=== PATIENT | male | born 1970 | race Caucasian/White ===

== ENCOUNTER 2016-11-15 05:45 | Day surgery (SDC) | payer OTHER ==
[2016-11-15] MEDS ORDERED: PREGABALIN 150 MG CAP ONE (05:52)
[2016-11-15] MEDS ORDERED: ACETAMINOPHEN 500 MG TAB ONE (05:52)
[2016-11-15] MEDS ORDERED: LIDOCAINE 1% 5 ML SDV ONE (05:53)
[2016-11-15] MEDS ORDERED: CEFAZOLIN 2 GM/DEXTROSE/100 ML BAG IV ONE (05:53)
[2016-11-15] MEDS ORDERED: LIDOCAINE 1% 5 ML SDV ID PRN (06:48)
[2016-11-15] MEDS ORDERED: LR 1,000 ML IV ONE (06:48)
[2016-11-15] MEDS ORDERED: EPINEPHrine 30 MG/30 ML MDV ONE (07:00)
[2016-11-15] MEDS ORDERED: BUPIVACAINE/EPI 0.25% 30 ML SDV ONE (07:00)
[2016-11-15] MEDS ORDERED: MIDAZOLAM 2 MG/2 ML VIAL ONE (07:03)
[2016-11-15] MEDS ORDERED: fentaNYL 250 MCG/5 ML INJ ONE (07:25)
[2016-11-15] MEDS ORDERED: PROPOFOL 200 MG/20 ML VIAL ONE (07:26)
[2016-11-15] MEDS ORDERED: ROCURONIUM 50 MG/5 ML VIAL ONE (07:26)
[2016-11-15] MEDS ORDERED: PROPOFOL/EMULSION 500 MG/50 ML BOTTLE IV ONE ×2 (07:26→09:39)
[2016-11-15] MEDS ORDERED: REMIFENTANIL HCL 1 MG VIAL ONE ×2 (07:38→09:39)
[2016-11-15] MEDS ORDERED: fentaNYL 100 MCG/2 ML INJ ONE ×2 (12:01→12:19)
[2016-11-15] MEDS ORDERED: ONDANSETRON 4 MG/2 ML VIAL ONE (12:29)
[2016-11-15] MEDS ORDERED: OXYCODONE/APAP 5/325 TAB ONE ×2 (12:48→13:27)
[2016-11-15] MEDS ORDERED: ACETAMINOPHEN 500 MG TAB PO ONE (13:00)
[2016-11-15] MEDS ORDERED: ceFAZolin 2 GM/DEXTROSE 100 ML IV ONE (13:00)
[2016-11-15] MEDS ORDERED: PREGABALIN 150 MG CAP PO ONE (13:00)
[2016-11-15] MEDS ORDERED: SCOPOLAMINE HYDROBROMIDE 1.5 MG PATCH TD ONE (13:00)
== END 2016-11-15 17:06 | disposition home or self-care (01) ==
LOC: FSGY 05:45
PROVIDERS: ATTEND Orthopaedic Surgery Sports Medicine
PROC: 0SQ94ZZ Repair Right Hip Joint, Percutaneous Endoscopic Approach (ICD-10-PCS; principal; 2016-11-15 07:15)
DX: M25.851 Other specified joint disorders, right hip (principal); M24.151 Other articular cartilage disorders, right hip
CPT/HCPCS: 29914; 29916; 76001; C1769; C1713; J0690; J2250; J2405; J2704; J3010